=== PATIENT | male | born 1980 | race African-American/Black ===

== ENCOUNTER 2019-09-28 00:53 | Emergency (ER) | payer MEDICAID ==
--- NOTE | 2019-09-28 01:49 | EDM.PDOC ---
ED HPI GENERAL MEDICAL PROBLEM - General Chief Complaint: Abdominal Pain Stated Complaint: LOWER RIGHT SIDE PAIN Time Seen by Provider: 09/28/19 00:59 Source of Information: Reports: Patient History Limitations: Reports: No Limitations - History of Present Illness INITIAL COMMENTS - FREE TEXT/NARRATIVE: TRIAGE NOTE -- pt was driving on his way to [employer] and felt a sudden sharp pain to RLQ, denies any vomiting. denies any burning sensation upon voiding. further stated he felt some pressure on his " prostate area" [ End ] He is having pain in his right flank area. Some mild dysuria. Also pain in his right groin area. No risk factors. Not associated with nausea vomiting or fever. No underlying medical problems identified. No treatment or other intervention to moderate symptoms prior to arrival. The pain is exacerbated by physical movement and deep breathing. Right Lower Abdomen Pain Score (Numeric/FACES): 5 - Related Data Allergies Allergy/AdvReac Type Severity Reaction Status Date / Time No Known Allergies Allergy Verified 09/28/19 01:11 Past Medical History Hematologic History: Reports: Other (See Below) Other Hematologic History: hemophilia Social & Family History - Tobacco Use Smoking Status *Q: Never Smoker Second Hand Smoke Exposure: No - Caffeine Use Caffeine Use: Reports: Coffee - Recreational Drug Use Recreational Drug Use: No ED ROS GENERAL - Review of Systems Review Of Systems: Comprehensive ROS is negative, except as noted in HPI. ED EXAM, RENAL/ - Physical Exam Exam: See Below Exam Limited By: No Limitations General Appearance: Alert, WD/WN, No Apparent Distress Eye Exam: Bilateral Eye: EOMI, PERRL Ears: Normal External Exam Nose: Normal Inspection Throat/Mouth: Normal Inspection Head: Atraumatic, Normocephalic Neck: Normal Inspection, Supple Respiratory/Chest: No Respiratory Distress, Lungs Clear, Normal Breath Sounds Cardiovascular: Regular Rate, Rhythm, No Edema GI/Abdominal: Soft, Tender (No tenderness area of right lower abdomen and right flank.). No: Guarding, Rigid, Rebound Back Exam: Normal Inspection Extremities: Normal Inspection Neurological: Alert, Oriented, Normal Cognition, No Motor/Sensory Deficits Psychiatric: Normal Affect, Normal Mood Skin Exam: Warm, Dry Course - Vital Signs Last Recorded V/S: Last Vital Signs Temp 36.2 C 09/28/19 01:04 Pulse 64 09/28/19 01:04 Resp 16 09/28/19 01:04 BP 143/95 H 09/28/19 01:04 Pulse Ox 100 09/28/19 01:04 - Orders/Labs/Meds Orders: Active Orders 24 hr Category Date Time Status Abdomen Pelvis wo Cont [CT] Stat Exams 09/28/19 01:48 Ordered CBC WITH MANUAL DIFF [HEME] Stat Lab 09/28/19 01:37 Ordered COMPREHENSIVE METABOLIC PN,CMP [CHEM] Stat Lab 09/28/19 01:37 Ordered LIPASE [CHEM] Stat Lab 09/28/19 01:37 Ordered UA W/MICROSCOPIC [URIN] Stat Lab 09/28/19 01:17 Results Labs: Laboratory Tests 09/28/19 Range/Units 01:17 Urine Color Yellow (Yellow) Urine Appearance Clear (Clear) Urine pH 5.5 (5.0-8.0) Ur Specific [place] > or = 1.030 (1.005-1.030) Urine Protein 1+ H (Negative) Urine Glucose (UA) Negative (Negative) Urine Ketones Negative (Negative) Urine Occult Blood 3+ H (Negative) Urine Nitrite Negative (Negative) Urine Bilirubin Negative (Negative) Urine Urobilinogen 0.2 (0.2-1.0) Ur Leukocyte Esterase Negative (Negative) - Re-Assessments/Exams Free Text/Narrative Re-Assessment/Exam: 09/28/19 02:00 Evaluation was initiated. Then the patient decided to leave AGAINST MEDICAL ADVICE because he was concerned whether his insurance would pay for this and he wanted to check that first before going ahead with a full evaluation. Departure - Departure Time of Disposition: 02:00 Disposition: Against Medical Advice 07 Condition: Undetermined Clinical Impression: Abdominal discomfort in right lower quadrant - Discharge Information Referrals: PCP,Not In Area [Primary Care Provider] - Forms: ED Department Discharge Sepsis Event Note (ED) - Evaluation Sepsis Screening Result: No Definite Risk - Focused Exam Vital Signs: Vital Signs Temp Pulse Resp BP Pulse Ox 09/28/19 01:04 36.2 C 64 16 143/95 H 100 - My Orders Last 24 Hours: My Active Orders 09/28/19 01:17 UA W/MICROSCOPIC [URIN] Stat 09/28/19 01:37 CBC WITH MANUAL DIFF [HEME] Stat COMPREHENSIVE METABOLIC PN,CMP [CHEM] Stat LIPASE [CHEM] Stat 09/28/19 01:48 Abdomen Pelvis wo Cont [CT] Stat - Assessment/Plan Last 24 Hours: My Active Orders 09/28/19 01:17 UA W/MICROSCOPIC [URIN] Stat 09/28/19 01:37 CBC WITH MANUAL DIFF [HEME] Stat COMPREHENSIVE METABOLIC PN,CMP [CHEM] Stat LIPASE [CHEM] Stat 09/28/19 01:48 Abdomen Pelvis wo Cont [CT] Stat
== END 2019-09-28 01:59 | disposition left against medical advice (07) ==
LOC: JD.ED 00:53
DX: R10.31 Right lower quadrant pain (principal)
CPT/HCPCS: 81001; 99282; 99284